=== PATIENT | male | born 1950 | race Caucasian/White ===

== ENCOUNTER → 2017-03-11 | Outpatient (CLI) | payer MEDICARE, OTHER ==
[2017-03-11 12:43] LABS: RED BLOOD COUNT 4.95 M/UL (4.20-5.50)
== END ==
LOC: LAB 10:57
PROVIDERS: Internal Medicine
DX: Z12.5 Encounter for screening for malignant neoplasm of prostate (principal); Z13.220 Encounter for screening for lipoid disorders; E11.9 Type 2 diabetes mellitus without complications; E03.9 Hypothyroidism, unspecified; I10 Essential (primary) hypertension; R53.81 Other malaise; R53.83 Other fatigue
CPT/HCPCS: 36415; 80053; 80061; 83036; 84443; 85027; G0103

== ENCOUNTER → 2022-02-25 | Outpatient (CLI) | payer MEDICARE, OTHER | LOC: RAD 13:00 | DX: R05.9 Cough, unspecified (principal) | CPT/HCPCS: 71046 ==

== ENCOUNTER → 2022-03-12 | Outpatient (CLI) | payer OTHER, MEDICARE | LOC: RAD 12:41 | DX: U09.9 Post COVID-19 condition, unspecified (principal) | CPT/HCPCS: 71046 ==